=== PATIENT | female | born 2000 | race Caucasian/White ===

== ENCOUNTER → 2020-07-29 | Outpatient (CLI) | payer OTHER ==
[~2020-07-29] MED LIST: MOTRIN 800800 MG/TAB PO; PERCOCET 325 MG1 TA2 PO; PRENATAL
== END ==
LOC: ZCOL.LAB
DX: Z20.828 Contact with and (suspected) exposure to other viral communicable diseases (principal)

== ENCOUNTER 2020-08-03 10:07 | Inpatient (IN) | payer OTHER ==
[2020-08-03] VITALS (20 sets, daily range): BP systolic 94–121; BP diastolic 50–76; PULSE 58–94; TEMP 97.9–98.4
[~2020-08-03] VITALS: Ht 154.9 cm; Wt 90.9 kg
--- NOTE | 2020-08-03 10:20 | NUR ---
PATIENT TO 210 FOR ADMISSION FOR SECTION. PATIENT CHANGED INTO GOWN, ON EFM, VITALS OBTAINED, ASSESMENT COMPLETE, IV STARTED, CONSENTS SIGNED. QUESTIONS ANSWERED. PATIENTS SPOUSE PRESENT AND INVOLVED AT BEDSIDE. PATIENT DENIES CONTRACTIONS, LEAKING OF FLUID OR BLEEDING.
[2020-08-03] MEDS ORDERED: PRENATAL (10:40)
[2020-08-03 11:06] LABS: BASO % 0.3 % (0.0-2.0); EOS # 0.2 (0.0-0.7); EOS % 1.2 % (0-4.0); GRAN # 9.1 (1.4-6.5); GRAN % 73.5 % (42.2-75.2); HEMOGLOBIN 11.9 g/dl (12.5-16.0); LYMPH # 2.1 (1.2-3.4); MEAN CELL VOLUME 88 fl (80.0-100.0); MEAN CORPUSCULAR HEMOGLOBIN 29 pg (27.0-31.0); MEAN CORPUSCULAR HGB CONC 33 g/dl (33.0-37.0); MEAN PLATELET VOLUME 10.3 fl (7.4-10.4); MONO # 0.9 (0.1-0.6); MONO % 7.3 % (1.7-9.3); PLATELET COUNT 377 K/mm3 (130-400); RED BLOOD COUNT 4.07 M/mm3 (4.10-5.30); REDCELL DISTRIBUTION WIDTH-CV 15.4 % (11.5-14.5)
[2020-08-03 11:07] LABS: HEMATOCRIT 35.8 % (37.0-47.0)
--- NOTE | 2020-08-03 11:11 | NUR ---
[id number] CONTRACTIONS NOTED 2- 4 MINUTES APART
--- NOTE | 2020-08-03 11:30 | NUR ---
[id number]- INTERMITTENT TRACING OF MONITORING. HEART RATE RANGES FROM 115-150. DR BANG PRESENT. NOTIFIED OF VARIABLE DECELS AT 1100
[2020-08-04 00:10] VITALS: BP 98/59; PULSE 61; TEMP 98
[2020-08-04 04:35] VITALS: BP 103/57; PULSE 69; TEMP 97.9
[2020-08-04 08:40] VITALS: BP 116/65; PULSE 67; TEMP 97.9
--- NOTE | 2020-08-04 09:21 | NUR ---
Initial visit; Parents thanked Medical Delivery Driver for offering congratulations and God's blessings for the of their son. Medical Delivery Driver thanked family for choosing [facility].
[2020-08-04] MEDS ORDERED: PERCOCET 325 MG1 TA2 PO (09:30)
[2020-08-04] MEDS ORDERED: MOTRIN 800800 MG/TAB PO (09:30)
--- NOTE | 2020-08-04 14:00 | NUR ---
1400 PATIENT TEARFUL, STATING HER INCISION IS HURTING SIGNIFICANTLY WORSE AFTER REMOVEING BANDAGE IN SHOWER SEVERAL HOURS AGO. ICE PACK GIVEN. INCISION RE-EVALUATED. INTACT, EDGES WELL APPROXIMATED, NO DRAINAGE, NO REDNESS, NO EDEMA. LOOKS SAME IT DID WHEN PT SHOWERED AND REMOVED IT. EDUCATED ABOUT S/S INFECTION, RETURN PRECAUTIONS. 1445 PT STATES ICE PACK SIGNIFICANTLY HELPS PAIN. NO LONGER TEARFUL.
== END 2020-08-04 15:00 | disposition home or self-care (01) | DRG 788 ==
LOC: OB 10:13
PROVIDERS: ADMIT Obstetrics & Gynecology
PROC: 10D00Z1 Extraction of Products of Conception, Low, Open Approach (ICD-10-PCS; principal; 2020-08-03)
DX: O34.211 Maternal care for low transverse scar from previous cesarean delivery (principal); Z3A.41 41 weeks gestation of pregnancy; Z37.0 Single live birth
CPT/HCPCS: J0690; J1885; J2370; J2405; J7120